=== PATIENT | female | born 1970 | race Two or more races ===

== ENCOUNTER 2024-02-06 18:08 | Emergency (ER) | payer OTHER ==
[~2024-02-06] VITALS: Ht 149.9 cm; Wt 82.6 kg
[~2024-02-06 18:08] MED LIST: XOPENEX0.63 MG/3
[2024-02-06] MEDS ORDERED: COZAAR50 MG PO (18:47)
[2024-02-06] MEDS ORDERED: SINGULAIR5 MG PO (18:48)
[2024-02-06] MEDS ORDERED: LEVOTHYROXINE25 MCG PO (18:48)
[2024-02-06] MEDS ORDERED: FAMOTIDINE/PF 20 MG in 0.9 % SODIUM CHLORIDE 8 ML IV PUSH STA (20:02)
[2024-02-06] MEDS ORDERED: ONDANSETRON HCL 2 MG/ML VIAL IV ONE (20:15)
[2024-02-06] MEDS ORDERED: BARIUM SULFATE 450 ML BOTTLE PO ONE (20:15)
[2024-02-06] MEDS ORDERED: 0.9 % SODIUM CHLORIDE 1,000 ML IV SCH (20:15)
[2024-02-06 20:30] LABS: MEAN CELL VOLUME 82.8 fL (80.00-100.00); MEAN CORPUSCULAR HEMOGLOBIN 28.2 pg (27.00-32.0); MEAN CORPUSCULAR HGB CONC 34.1 g/dl (32.0-36.0); PLATELET COUNT 262 K/uL (150-450); RED BLOOD COUNT 4.59 M/uL (4.00-6.00); RED CELL DISTRIBUTION WIDTH 12.9 % (11.5-14.5)
[2024-02-06 20:52] LABS: ALBUMIN 3.9 gm/dL (3.4-5.0); BILIRUBIN TOTAL 0.52 mg/dL (0.3-1.2); BILIRUBIN,CONJUGATED 0.11 mg/dL (0.0-0.2); BILIRUBIN,UNCONJUGATED 0.41 mg/dL (0.0-0.6); CALCIUM 9.3 mg/dL (8.5-10.1); CREATININE SERUM 0.67 mg/dL (0.55-1.02); GFR 91.38; GLOBULINA 3.9 G/DL (2.4-3.5); POTASSIUM 3.65 mEq/L (3.5-5.1); TOTAL PROTEIN 7.8 gm/dL (6.4-8.2)
[2024-02-06 22:21] LABS: PH,URINE 5.5 (5.0-8.0); URINE APPEARANCE Clear; URINE BILIRRUBIN Negative (NEGATIVE); URINE BLOOD Trace; URINE COLOR Yellow; URINE GLUCOSE Negative (NEGATIVE); URINE KETONE Negative (NEGATIVE); URINE LEUKOCYTE Large; URINE NITRATE Negative; URINE PROTEIN Negative (NEGATIVE); URINE UROBILINOGEN 0.2 E.U./dl
[2024-02-06 22:24] LABS: URINE BACTERIA 224.2 uL (0.0-1933); URINE EPITHELIAL CELLS 19.6 uL (0.0-38.8); URINE RBC 13.4 uL (0.0-20.8); URINE WBC 123.6 uL (0.0-23.2)
[2024-02-06 22:35] LABS: URINE CAST 0.45 uL (0.0-1.40)
[2024-02-07] MEDS ORDERED: HYOSCYAMINE SULFATE 0.125 MG TAB.SUBL SL STA (04:12)
== END 2024-02-07 04:24 | disposition home or self-care (01) ==
LOC: ER 18:10
PROVIDERS: General Practice
DX: K57.32 Diverticulitis of large intestine without perforation or abscess without bleeding (principal); R10.32 Left lower quadrant pain; Z88.8 Allergy status to other drugs, medicaments and biological substances; Z88.2 Allergy status to sulfonamides
CPT/HCPCS: 36415; 74177; 96365; 96366; 99284; J2405; J7030; Q9965